=== PATIENT | male | born 1960 | race Caucasian/White ===

== ENCOUNTER 2020-04-01 10:12 | Inpatient (IN) | payer SELFPAY ==
[~2020-04-01] VITALS: Ht 180.3 cm; Wt 83.5 kg
[~2020-04-01 10:12] MED LIST: PREDNISONE20 M1 PO
[2020-04-01 10:20] VITALS: BP 138/78
[2020-04-01 11:00] LABS: BASO % 0.2 % (0.0-1.0); EOS % 0.3 % (1.0-4.0); HEMATOCRIT 51.6 % (42.0-52.0); LYMPH # 1.2 10*3/uL (1.3-4.4); LYMPH % 8.1 % (27.0-41.0); MEAN CELL VOLUME 91.8 fl (80.0-94.0); MEAN CORPUSCULAR HGB CONC 31.6 g/dl (33.0-37.0); MEAN PLATELET VOLUME 9.6 fl (9.6-12.3); MONO # 1.2 10*3/uL (0.1-1.0); MONO % 8.2 % (3.0-9.0); NEUT # 11.7 10*3/uL (2.3-7.9); NEUT % 82.8 % (47.0-73.0); PLATELET COUNT AUTOMATED 242 10*3/uL (130-400); RED BLOOD COUNT 5.62 10*6/uL (4.50-5.90); RED CELL DISTRI WIDTH 11.9 % (0-14.5); WHITE BLOOD COUNT 14.1 10*3/uL (4.8-10.8)
[2020-04-01 11:18] LABS: ALBUMIN 3.8 gm/dl (3.1-4.5); ALKALINE PHOSPHATASE 67 U/L (45-117); BUN 12 mg/dl (7-24); CHLORIDE 105 mmol/L (98-107); CREATININE 0.98 mg/dL (0.70-1.30); SGOT/AST 12 IU/L (3-35); SGPT/ALT 17 U/L (12-78); SODIUM 139 mmol/L (136-145); TOTAL PROTEIN 7.7 gm/dL (6.4-8.2)
[2020-04-01 16:00] VITALS: BP 116/52
[2020-04-01 18:28] VITALS: BP 121/69
[2020-04-02] VITALS: BP 138/77
[2020-04-02 06:32] LABS: BASO % 0.2 % (0.0-1.0); EOS # 0.1 10*3/uL (0.0-0.4); EOS % 0.5 % (1.0-4.0); HEMATOCRIT 45.3 % (42.0-52.0); LYMPH # 0.8 10*3/uL (1.3-4.4); LYMPH % 6.2 % (27.0-41.0); MEAN CELL VOLUME 92.6 fl (80.0-94.0); MEAN CORPUSCULAR HGB 29.7 pg (27.0-31.0); MEAN PLATELET VOLUME 9.9 fl (9.6-12.3); MONO % 8.3 % (3.0-9.0); NEUT # 10.3 10*3/uL (2.3-7.9); NEUT % 84.3 % (47.0-73.0); PLATELET COUNT AUTOMATED 201 10*3/uL (130-400); RED BLOOD COUNT 4.89 10*6/uL (4.50-5.90); WHITE BLOOD COUNT 12.2 10*3/uL (4.8-10.8)
[2020-04-02 06:40] LABS: INTERNATIONAL NORM RATIO 1.1 (2.0-3.5)
[2020-04-02 06:57] LABS: ALBUMIN 2.8 gm/dl (3.1-4.5); BUN 10 mg/dl (7-24); CHLORIDE 110 mmol/L (98-107); CHOLESTEROL 149 mg/dL (<200); CREATININE 0.95 mg/dL (0.70-1.30); HDL CHOLESTEROL 37 mg/dl (40-60); LDL CHOLESTEROL 96 mg/dL (9-159); POTASSIUM 3.8 mmol/L (3.5-5.1); SGOT/AST 12 IU/L (3-35); SGPT/ALT 13 U/L (12-78); SODIUM 140 mmol/L (136-145); TOTAL PROTEIN 5.9 gm/dL (6.4-8.2); TRIGLYCERIDES 78 mg/dl (<150); VLDL CHOLESTEROL 16 mg/dL (6-40)
[2020-04-02 07:03] LABS: ALKALINE PHOSPHATASE 51 U/L (45-117)
[2020-04-02 08:00] VITALS: BP 124/70
[2020-04-02 12:00] VITALS: BP 122/72
[2020-04-02 15:44] VITALS: BP 116/52
[2020-04-02 20:00] VITALS: BP 118/65
[2020-04-03] VITALS: BP 118/66
[2020-04-03 07:27] LABS: BASO % 0.2 % (0.0-1.0); EOS # 0.2 10*3/uL (0.0-0.4); EOS % 1.7 % (1.0-4.0); HEMATOCRIT 44.7 % (42.0-52.0); LYMPH # 0.8 10*3/uL (1.3-4.4); LYMPH % 7.7 % (27.0-41.0); MEAN CELL VOLUME 91.2 fl (80.0-94.0); MEAN CORPUSCULAR HGB 29.8 pg (27.0-31.0); MEAN CORPUSCULAR HGB CONC 32.7 g/dl (33.0-37.0); MEAN PLATELET VOLUME 9.7 fl (9.6-12.3); MONO # 0.6 10*3/uL (0.1-1.0); MONO % 5.8 % (3.0-9.0); NEUT # 8.4 10*3/uL (2.3-7.9); NEUT % 84.4 % (47.0-73.0); PLATELET COUNT AUTOMATED 201 10*3/uL (130-400)
[2020-04-03 07:53] LABS: BUN 6 mg/dl (7-24); CHLORIDE 110 mmol/L (98-107); CREATININE 0.98 mg/dL (0.70-1.30); POTASSIUM 3.6 mmol/L (3.5-5.1); SODIUM 142 mmol/L (136-145)
[2020-04-03 08:00] VITALS: BP 128/72
[2020-04-03 12:00] VITALS: BP 125/72
[2020-04-03 16:00] VITALS: BP 109/87
[2020-04-03 20:00] VITALS: BP 126/70
[2020-04-04] VITALS: BP 107/71
[2020-04-04 08:00] VITALS: BP 119/70
[2020-04-04 12:00] VITALS: BP 126/70
[2020-04-04 16:00] VITALS: BP 129/69
[2020-04-04 20:00] VITALS: BP 126/68
[2020-04-05] VITALS: BP 123/66
[2020-04-05 06:16] LABS: BASO % 0.4 % (0.0-1.0); EOS # 0.2 10*3/uL (0.0-0.4); EOS % 4.1 % (1.0-4.0); HEMATOCRIT 48.7 % (42.0-52.0); LYMPH # 0.9 10*3/uL (1.3-4.4); LYMPH % 18.2 % (27.0-41.0); MEAN CELL VOLUME 89.9 fl (80.0-94.0); MEAN CORPUSCULAR HGB CONC 32.2 g/dl (33.0-37.0); MEAN PLATELET VOLUME 9.4 fl (9.6-12.3); MONO # 0.4 10*3/uL (0.1-1.0); MONO % 8.2 % (3.0-9.0); NEUT # 3.4 10*3/uL (2.3-7.9); NEUT % 68.9 % (47.0-73.0); PLATELET COUNT AUTOMATED 243 10*3/uL (130-400); RED BLOOD COUNT 5.42 10*6/uL (4.50-5.90); RED CELL DISTRI WIDTH 11.7 % (0-14.5); WHITE BLOOD COUNT 4.9 10*3/uL (4.8-10.8)
[2020-04-05 06:20] LABS: BUN 9 mg/dl (7-24); CHLORIDE 108 mmol/L (98-107); CREATININE 1.04 mg/dL (0.70-1.30); POTASSIUM 3.6 mmol/L (3.5-5.1); SODIUM 144 mmol/L (136-145)
[2020-04-05 08:00] VITALS: BP 119/84
[2020-04-05 12:00] VITALS: BP 139/86
[2020-04-05] MEDS ORDERED: LEVOFLOXACIN500 MG PO (12:52)
[2020-04-05] MEDS ORDERED: XARELTO1 EACH PO (12:52)
[2020-04-05] MEDS ORDERED: XARELTO20 M1 PO (12:52)
[2020-04-05] MEDS ORDERED: NORCO 5-325 TA1 EACH PO (12:53)
== END 2020-04-05 13:18 | disposition home or self-care (01) | DRG 603 ==
LOC: ED 10:12 → EDHOLD 11:35 → 5E 11:35
PROVIDERS: Family Medicine; Nurse Practitioner Family; Student in an Organized Health Care Education/Training Program; ADMIT Internal Medicine; ATTEND Internal Medicine
DX: L03.116 Cellulitis of left lower limb (principal); I82.512 Chronic embolism and thrombosis of left femoral vein; R17 Unspecified jaundice; L97.329 Non-pressure chronic ulcer of left ankle with unspecified severity; I87.2 Venous insufficiency (chronic) (peripheral); L25.9 Unspecified contact dermatitis, unspecified cause; D72.9 Disorder of white blood cells, unspecified; F17.210 Nicotine dependence, cigarettes, uncomplicated; Z71.6 Tobacco abuse counseling

== ENCOUNTER → 2020-04-23 | Outpatient (CLI) | payer SELFPAY ==
[~2020-04-23] MED LIST changes: +LEVOFLOXACIN500 MG PO; +NORCO 5-325 TA1 EACH PO; +XARELTO1 EACH PO; +XARELTO20 M1 PO
== END | disposition home or self-care (01) ==
LOC: RESCLI 02:17
PROVIDERS: ATTEND Internal Medicine
DX: I82.592 Chronic embolism and thrombosis of other specified deep vein of left lower extremity (principal); I70.90 Unspecified atherosclerosis; F17.210 Nicotine dependence, cigarettes, uncomplicated; Z76.89 Persons encountering health services in other specified circumstances; Z13.39 Encounter for screening examination for other mental health and behavioral disorders; Z71.6 Tobacco abuse counseling; Z01.89 Encounter for other specified special examinations

== ENCOUNTER → 2020-05-05 | Outpatient (CLI) | payer SELFPAY | END | disposition home or self-care (01) | LOC: RESCLI 05-04 11:05 | PROVIDERS: ATTEND Internal Medicine Nephrology | DX: I82.512 Chronic embolism and thrombosis of left femoral vein (principal); I87.2 Venous insufficiency (chronic) (peripheral); R73.03 Prediabetes; F17.210 Nicotine dependence, cigarettes, uncomplicated; Z79.899 Other long term (current) drug therapy ==

== ENCOUNTER → 2020-07-16 | Outpatient (CLI) | payer SELFPAY | END | disposition home or self-care (01) | LOC: RESCLI 04:05 | PROVIDERS: ATTEND Family Medicine | DX: I82.512 Chronic embolism and thrombosis of left femoral vein (principal); I87.2 Venous insufficiency (chronic) (peripheral); R73.03 Prediabetes; Z79.899 Other long term (current) drug therapy ==